=== PATIENT | male | born 1990 | race Caucasian/White ===

== ENCOUNTER 2017-01-21 15:33 | Emergency (ER) | payer MEDICAID ==
[~2017-01-21] VITALS: Ht 177.8 cm; Wt 75.0 kg
[2017-01-21 15:38] VITALS: BP 127/85
== END 2017-01-21 16:30 | disposition home or self-care (01) ==
LOC: ED 16:24
DX: Z00.8 Encounter for other general examination (principal)
CPT/HCPCS: 99281

== ENCOUNTER 2017-02-01 21:16 | Emergency (ER) | payer MEDICAID ==
[~2017-02-01] VITALS: Ht 180.3 cm; Wt 74.5 kg
[2017-02-01 21:28] VITALS: BP 139/84
== END 2017-02-01 22:47 | disposition home or self-care (01) ==
LOC: ED 22:38
DX: J20.8 Acute bronchitis due to other specified organisms (principal); J00 Acute nasopharyngitis [common cold]
CPT/HCPCS: 71020

== ENCOUNTER 2017-04-30 11:46 | Emergency (ER) | payer MEDICAID ==
[~2017-04-30] VITALS: Ht 175.3 cm; Wt 68.8 kg
[2017-04-30 14:24] VITALS: BP 118/81
== END 2017-04-30 14:26 | disposition home or self-care (01) ==
LOC: ED 14:10
DX: M79.644 Pain in right finger(s) (principal); F15.10 Other stimulant abuse, uncomplicated
CPT/HCPCS: 99283

== ENCOUNTER 2020-12-17 05:46 | Day surgery (SDC) | payer MEDICAID ==
[~2020-12-17] VITALS: Ht 177.8 cm; Wt 98.0 kg
[2020-12-17 06:41] VITALS: BP 138/90
[2020-12-17] MEDS ORDERED: CHLORHEXIDINE 15 ML UDC MM ONE (07:00)
[2020-12-17] MEDS ORDERED: LACTATED RINGERS 1,000 ML IV SCH (07:00)
[2020-12-17] MEDS ORDERED: LANS15CA60 PO (07:15)
[2020-12-17] MEDS ORDERED: ESOM20CA PO (07:15)
[2020-12-17] MEDS ORDERED: MIDAZOLAM 1 MG/ML, 2ML ONE (07:19)
[2020-12-17] MEDS ORDERED: LIDOCAINE-MPF 2% ,5ML ONE (07:19)
[2020-12-17] MEDS ORDERED: PROPOFOL 10 MG/ML, 20ML ONE (07:19)
[2020-12-17] MEDS ORDERED: FENTANYL PF 250 MCG/5ML ONE (07:19)
[2020-12-17] MEDS ORDERED: GLYCOPYRROLATE 0.2MG/1ML, 5ML ONE (07:19)
[2020-12-17] MEDS ORDERED: DEXAMETHASONE 4 MG/ML, 5ML ONE (07:19)
[2020-12-17] MEDS ORDERED: ROCURONIUM 10MG/ML,5ML ONE (07:19)
[2020-12-17] MEDS ORDERED: MULT-297 PO (07:26)
[2020-12-17] MEDS ORDERED: hydrALAzine 20 MG/ML, 1ML IV PRN (07:30)
[2020-12-17] MEDS ORDERED: LORazepam 2 MG/ML, 1ML IVPush PRN (07:30)
[2020-12-17] MEDS ORDERED: DIPHENHYDRAMINE 50 MG/ML, 1ML IVPush PRN (07:30)
[2020-12-17] MEDS ORDERED: METHOCARBAMOL 1,000 MG in DEXTROSE 5% 100 ML IV PRN (07:30)
[2020-12-17] MEDS ORDERED: HYDROcodone/APAP 7.5-325MG/15ML UDC PO PRN (07:30)
[2020-12-17] MEDS ORDERED: ONDANSETRON 2MG/ML, 2ML IVPush PRN (07:30)
[2020-12-17] MEDS ORDERED: EPHEDRINE 50 MG/ML, 1ML IVPush PRN (07:30)
[2020-12-17] MEDS ORDERED: MIDAZOLAM 1 MG/ML, 2ML IV PRN (07:30)
[2020-12-17] MEDS ORDERED: OXYcodone 5 MG/5 ML ORAL.SOL UDC PO PRN (07:30)
[2020-12-17] MEDS ORDERED: HALOPERIDOL 5 MG/ML IV PRN (07:30)
[2020-12-17] MEDS ORDERED: LABETALOL 5MG/ML, 20ML IV PRN (07:30)
[2020-12-17] MEDS ORDERED: MEPERIDINE/PF 25MG/0.5ML IVPush PRN (07:30)
[2020-12-17] MEDS ORDERED: FENTANYL PF 100 MCG/2ML IV PRN (07:30)
[2020-12-17] MEDS ORDERED: HYDROmorphone 1 MG/ML, 1ML INJ IVPush PRN (07:30)
[2020-12-17] MEDS ORDERED: METOCLOPRAMIDE 5 MG/ML, 2ML IVPush PRN (07:30)
[2020-12-17] MEDS ORDERED: EPHEDRINE 50 MG/ML, 1ML IM PRN (07:30)
[2020-12-17] MEDS ORDERED: KETOROLAC 30 MG/1 ML IVPush PRN (07:30)
[2020-12-17] MEDS ORDERED: ALBUTEROL SULFATE 2.5 MG/3 ML NPPB PRN (07:30)
[2020-12-17] MEDS ORDERED: DIAZEPAM 5 MG/ML, 2ML IVPush PRN (07:30)
[2020-12-17 07:32] LABS: BASOPHILS % (AUTO) 1 % (0-1); EOSINOPHILS % (AUTO) 4 % (1-7); LYMPHOCYTES % (AUTO) 27 % (22-44); MEAN CORPUSCULAR HEMOGLOBIN 30.4 pg (27.5-34.5); MEAN CORPUSCULAR HGB CONC 33.9 g/dL (33.2-36.2); MEAN PLATELET VOLUME 9.3 fL (7.4-10.4); MONOCYTES % (AUTO) 10 % (2-9); NEUTROPHILS % (AUTO) 57 % (42-75); PLATELET COUNT 218 x10^3/uL (130-400); RED CELL DISTRIBUTION WIDTH 13.7 % (9.4-14.8)
[2020-12-17 07:35] LABS: ALBUMIN 3.9 g/dL (3.4-5.0); ANION GAP 6 mmol/L (5-15); CHLORIDE 110 mmol/L (98-107)
[2020-12-17 07:37] LABS: MD NO
[2020-12-17 07:38] LABS: ALANINE AMINOTRANSFERASE 52 U/L (12-78); ALKALINE PHOSPHATASE 77 U/L (45-117); BILIRUBIN,TOTAL 0.6 mg/dL (0.2-1.0); CREATININE 0.86 mg/dL (0.7-1.3); INTERNATIONAL NORMALIZED RATIO 1.02 (0.93-1.1); PROTHROMBIN TIME 10.9 Seconds (9.6-11.5)
== END 2020-12-17 10:40 | disposition home or self-care (01) ==
LOC: OUT 05:46
PROVIDERS: ATTEND Internal Medicine Critical Care Medicine
DX: R91.1 Solitary pulmonary nodule (principal); R59.0 Localized enlarged lymph nodes; K21.9 Gastro-esophageal reflux disease without esophagitis; Z20.822 Contact with and (suspected) exposure to COVID-19; Z79.01 Long term (current) use of anticoagulants; Z79.899 Other long term (current) drug therapy; Z87.891 Personal history of nicotine dependence
CPT/HCPCS: 31653; 36415; 71045; 80053; 85025; 85610; 85730; 87635; 88172; 88173; 88177; 88305; J1100; J2250; J2704; J3010; J7120; 31629